=== PATIENT | female | born 1940 | race Hispanic/Latino ===

== ENCOUNTER 2018-03-09 08:43 | Inpatient (IN) | payer MEDICARE, BC ==
[~2018-03-09 08:43] MED LIST: ISOVUE-370 76%-LOCM 1 ML ONE
--- NOTE | 2018-03-09 08:58 | CT ---
CT BRAIN WITHOUT CONTRAST: Date: 03/09/18 HISTORY: Left-sided weakness. FINDINGS: There is an old lacunar infarct in the right thalamus. No evidence of acute infarct, hemorrhage, midl ine shift, or abnormal extra-axial fluid collections are seen. There is also suggestion of an old inf arction in the left frontal lobe. There are changes of chronic small vessel ischemic disease in the p eriventricular white matter. The ventricular size is appropriate and the basilar cisterns are patent. The bony calvarium is intact. Visualized paranasal sinuses and mastoid air cells are well aerated. A small old infarct is seen in the right cerebellar hemisphere, which was noted on 04/07/08. IMPRESSION: No CT evidence of acute intracranial process. Findings discussed over the telephone with ER physician, Dr. John Altamirano, at [id number] hours. CODE CR. POS: [facility]
[2018-03-09 09:05] LABS: #Basophils 0.1 thou/uL (0.0-0.2); #Eosinphils 0.1 thou/uL (0.0-0.7); #Lymphocytes 2.2 thou/uL (1.20-3.40); #Monocytes 0.4 thou/uL (0.11-0.59); #Neutrophils 4.1 thou/uL (1.40-6.50); %Basophils 0.9 % (0.0-1.0); %Eosinophils 1.1 % (0.0-10.0); %Lymphocytes 31.7 % (21.0-51.0); %Monocytes 6.5 % (0.0-10.0); %Neutrophils 59.8 % (42.0-75.0); Hemoglobin 14.1 g/dL (12.0-16.0); Mean Corpuscular HGB CONC 31.6 g/dL (32.0-36.0); Mean Corpuscular Hemoglobin 27.8 pg (27.0-31.0); Mean Platelet Volume 9.3 fL (7.4-10.4); Platelet Count 229 thou/uL (130-400); RBC Distribution Width 12.5 % (11.5-14.5); Red Blood Cell (RBC) Count 5.09 mill/uL (4.20-5.40); White Blood Cell (WBC) Count 6.8 thou/uL (4.8-10.8)
[2018-03-09 09:07] LABS: Prothrombin Time 13.1 SEC (12.0-14.7)
[2018-03-09] MEDS ORDERED: Labetalol HCl 100 MG/20 ML VIAL ONE (09:23)
[2018-03-09 09:24] LABS: ALT (SGPT) 17 U/L (8-55); AST (SGOT) 17 U/L (5-34); Albumin 3.9 g/dL (3.4-4.8); Alkaline Phosphatase 62 U/L (40-150); Anion Gap 12 mmol/L (10-20); BUN (Urea Nitrogen) 9 mg/dL (9.8-20.1); Bilirubin, Total 0.5 mg/dL (0.2-1.2); Calc. Creatinine Clearance 0 mL/min (70-130); Calcium 9.2 mg/dL (7.8-10.44); Carbon Dioxide 21 mmol/L (23-31); Chloride 106 mmol/L (98-107); Estimated GFR-MDRD 73; Globulin 3.6 g/dL (2.4-3.5); Glucose 160 mg/dL (83-110); Potassium 4.1 mmol/L (3.5-5.1); Protein, Total 7.5 g/dL (6.0-8.3); Sodium 135 mmol/L (136-145)
[2018-03-09 09:29] LABS: CKMB 1.7 ng/mL (0-6.6); Troponin I Less than 0.010 ng/mL (< 0.028)
--- NOTE | 2018-03-09 09:37 | CT ---
CTA CAROTID ARTERIES AND INTRACRANIAL CTA: HISTORY: Stroke, left-sided weakness. FINDINGS: Contrast-enhanced CTA of the carotid arteries and intracranial CTA are performed. Two-D and 3D recon structed images performed on an independent 3D work station. Some calcification is seen in the aorta. The right brachiocephalic artery is patent. The right comm on carotid artery is patent. There is some calcified atherosclerotic plaque in the distal right CCA. No evidence of significant noncalcified plaque seen. The right ICA is patent along its entire cour se. There do appear to be some mild areas of calcified plaque in the junction of the right petrous I CA and cavernous ICA; however, this does not represent significant high-grade stenosis. Some caverno us ICA calcified plaque is also seen. Good flow is seen in the supraclinoid ICA. Right BRANDEN and MCA vessels are patent. LEFT CAROTID: Some atherosclerotic plaque is seen in the distal left CCA. The left ICA contains some mild areas of calcified plaque in the left cavernous ICA. The left MCA and BRANDEN vessels are patent. A normal-appe aring anterior communicating artery is seen. Right and left vertebral arteries are patent without evidence of significant occlusion. No evidence of intracranial aneurysm is seen. IMPRESSION: Some areas of atherosclerotic plaque in the distal common carotid arteries bilaterally as well as in the cavernous internal carotid arteries. No evidence of areas of abrupt vessel cutoff seen to sugges t acute strokes. Findings discussed with Dr. Altamirano at 9:06 a.m. on 03/09/18. GAURAV CR
[2018-03-09] MEDS ORDERED: Ondansetron HCl/PF 4 MG/2 ML Vial IVP PRN (11:37)
[2018-03-09] MEDS ORDERED: Ondansetron ODT 4 MG TAB SL PRN (11:37)
[2018-03-09] MEDS ORDERED: hydrALAZINE 20 MG/ML VIAL SLOW IVP PRN (12:09)
[2018-03-09] MEDS ORDERED: HumaLOG 300 UNITS/3 ML VIAL SC PRN ×2 (12:13→12:19)
[2018-03-09] MEDS ORDERED: Dextrose 5% in Water 1,000 ML IV PRN (12:19)
[2018-03-09] MEDS ORDERED: Dextrose 50% Abboject 50 ML SYRINGE IVP PRN (12:19)
[2018-03-09] MEDS ORDERED: Clopidogrel Bisulfate 75 MG TAB PO SCH (13:45)
--- NOTE | 2018-03-09 14:28 | MRI ---
MRI BRAIN WITHOUT CONTRAST: HISTORY: Left-sided weakness. COMPARISON: None. CORRELATION: Brain CT, CT angiogram of head and neck performed on 03/09/18. TECHNIQUE: Brain MRI was performed with and without intravenous Gadolinium administration. Multisequential, mul tiplanar imaging is performed. FINDINGS: There is appropriate T1 marrow signal intensity of the calvarium. Midline brain parenchymal structur es are unremarkable. Probable remote infarct with cavitation involving the medial inferior right joe lamus. Additional punctate lacunar infarcts versus perivascular spaces in both [place] matter stru ctures is noted. There is gliotic change involving the left septal node. T2 and FLAIR white matter hyperintensities due to chronic small-vessel ischemic change. T2 and FLAIR white matter hyperintensities with restricted diffusion involving the right marcos radi josy extending to the right subinsular white matter, compatible with acute white matter infarct. Central arterial flow voids are maintained. Note is made of a partially empty sella. IMPRESSION: Acute infarct involving the right white matter structures as described above. POS: [facility]
--- NOTE | 2018-03-09 18:07 | HP ---
DATE OF ADMISSION: 03/09/2018 CHIEF COMPLAINT: Left-sided weakness, left facial droop. 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 The patient states that she was drinking her coffee in the morning when she had difficult time lifting her left arm. The family noted a left facial droop as well. They called EMS and the patient presents to the emergency departm ent. In the ED, they state that her symptoms would come and go. Her left-sided weakness slowly impr timo and then on the floor, she started noticing some left-sided weakness again. This again has impr timo somewhat, but her left facial droop has continued. She denies any chest pain, shortness of brant th, palpitations. Denies any nausea, vomiting or dizziness. Of note, she states that from her strok e 10 years ago which was a brainstem CVA, she had dizziness, nausea, and blurred vision and has not h ad any of those at this time. In the ED, she underwent a brain CT, which was negative as well as a C T angiogram of her neck and head and those showed no evidence of thrombosis. Her blood pressure in [facility] ED was elevated and this improved with IV hydralazine. She is now symptom free except for the lef t facial droop and otherwise at her baseline. I discussed with the family and they stated that she i s also behaving normally with no other changes. She was last seen in my office on 02/03/2018 and had been doing well. Her blood pressure was well controlled at that time on her current medications. H er medications were continued as well. PAST MEDICAL HISTORY: History of cerebrovascular accident brainstem 10 years ago, type 2 diabetes wi th hyperglycemia, hypertension, hyperlipidemia, history of depression. MEDICATIONS: Simvastatin 80 mg daily, Janumet one twice a day, Plavix 75 mg daily, carvedilo l 3.125 mg b.i.d., enalapril 5 mg daily. ALLERGIES: No known drug allergies. PAST SURGICAL HISTORY: Right knee surgery in 1995, D&C in 1997, bilateral cataract surgery by Dr. Scott hyatt in 2015, colonoscopy last in 2002. FAMILY HISTORY: Father with diabetes. Mother with heart disease, colon cancer and diabetes. Siblings with cancer. IMMUNIZATIONS: Up to date. She has not received her flu shot this year. SOCIAL HISTORY: She has received a Pneumovax and Prevnar within the last 5 years. REVIEW OF SYSTEMS: As per the history of present illness. GENERAL: She denies any recent fevers, chills or recent illness. HEENT: No headache, visual or hearing changes. CARDIAC: Denies chest pain, shortness of breath or palpitations. PULMONARY: Denies cough or hemoptysis. GASTROINTESTINAL: Denies nausea, vomiting, abdominal pain, melena, hematochezia. GENITOURINARY: Denies dysuria or hematuria. NEUROLOGIC: As per the history of present illness. PHYSICAL EXAMINATION: VITAL SIGNS: Temperature 98.0, pulse of 57, respirations 18, blood pressure 155/77, pulse ox is 97% on room air. GENERAL: She is awake and alert, in no acute distress. Speech is clear. She does have a left facia l droop. NECK: Supple, no bruits. HEART: Regular rate and rhythm. LUNGS: Clear. ABDOMEN: Soft. EXTREMITIES: With no edema. She moves all extremities. Lower extremity with strength 5/5, upper ex tremity with strength 5/5 with minimal deltoid weakness on the left side. NEUROLOGIC: Cranial nerves II-XII are intact. LABORATORY DATA: Sodium 135, potassium 4.1, chloride 106, CO2 of 21, BUN and creatinine 9 and 0.77, serum glucose of 160. Troponin I is negative. PT, PTT are normal. White blood cell count 6800, hem oglobin and hematocrit 14.1 and 44.8, platelets of 229. Again, CT of the brain showed no active dise ase. CT angio of the brain and neck showed no evidence of thrombosis. MRI of the brain is pending. ASSESSMENT AND PLAN: 1. This is a 78-year-old female patient with a past medical history as described above. History of past cerebrovascular accident now with evidence of a transient ischemic attack versus right cerebrova scular accident. Awaiting MRI of the brain for possible cerebrovascular accident in the middle cereb ral artery distribution. We will continue Plavix, given a dose of aspirin. We will initiate stroke team with PT, OT, and speech therapy. 2. Type 2 diabetes. We will continue Janumet and insulin sliding scale. 3. Hypertension, has improved now. We will continue her carvedilol and enalapril and hydralazine p. r.n. 4. Hyperlipidemia. We will continue high dose simvastatin. 5. Await Neurology evaluation as well.
[2018-03-09] MEDS: Carvedilol 3.125 MG TAB PO SCH (20:45)
--- NOTE | 2018-03-10 00:26 | CON ---
DATE OF CONSULTATION: 03/09/2018 CONSULTING PHYSICIAN: Hospitalist Service. IMPRESSION: 1. Lacunar stroke on the right with mild left hemiparesis. 2. Diabetes. 3. Hypertension. 4. Occasional tobacco use. 5. Plavix failure. PLAN: 1. Add aspirin. 2. Rehab screening. HISTORY OF PRESENT ILLNESS: Ms. Bhagat is a 78-year-old female, who awoke with left-sided we akness. She had had a history of distant stroke about 10 years ago. She made good recovery from thi s. She came into the hospital with continued complaints of left-sided weakness. Her MRI of the brai n revealed acute area of ischemia in the right marcos radiata as well as extensive small-vessel ische leigha changes. Her symptoms have been stable. She has not noticed any problems with speech or swallow ing. PAST MEDICAL HISTORY: As listed above. ALLERGIES: None reported. SOCIAL HISTORY: Occasional tobacco use. FAMILY HISTORY: Noncontributory. REVIEW OF SYSTEMS: No complaint of headache, nausea, vomiting, vertigo, chest pain, shortness of noe ath. PHYSICAL EXAMINATION: GENERAL: She is a well-nourished elderly lady in no distress. VITAL SIGNS: Blood pressure 186/124, pulse 65, respirations 18, temperature 99. HEENT: Pupils equal and reactive. Conjunctivae clear. Oropharynx clear. NECK: Supple. No lymphadenopathy. EXTREMITIES: No cyanosis, clubbing, or edema. NEUROLOGIC: She is alert and cooperative. Her speech is fluent and clear. Cranial nerve exam showe d some flattening of the left nasal labial fold. She had antigravity strength in the left arm with d iminished rapid alternating movements. The same was true for the left leg. She is unable to walk in dependently. Sensation was intact to light touch. Plantar responses were downgoing. No abnormal mo vements were seen. EKG shows sinus rhythm with no other significant abnormalities. SUMMARY: This is an elderly lady with hypertension and diabetes, who presents with lacunar infarctio n consistent with small-vessel disease. She has no cardiac history and has a normal EKG. Therefore, echocardiogram does not seem necessary. She will likely need rehabilitation given her gait instabi lity.
[2018-03-10 04:45] LABS: Cardiac Risk 3.2 (Less than 4.5)
[2018-03-10] MEDS: metFORMIN 500 MG TAB PO SCH (08:28)
[2018-03-10] MEDS: Aspirin 325 mg Enteric Coated Tablet PO SCH (08:28)
[2018-03-10] MEDS: Atorvastatin Calcium 40 MG TAB PO SCH (08:28)
[2018-03-10] MEDS: Alogliptin 6.25 MG TAB PO SCH (08:28)
[2018-03-10] MEDS: Carvedilol 3.125 MG TAB PO SCH ×2 (08:29→21:07)
[2018-03-10] MEDS: Clopidogrel Bisulfate 75 MG TAB PO SCH (08:29)
[2018-03-10] MEDS: HumaLOG 300 UNITS/3 ML VIAL SC PRN ×2 (11:57→17:39)
[2018-03-10] MEDS ORDERED: Labetalol HCl 100 MG/20 ML VIAL SLOW IVP PRN (12:23)
--- NOTE | 2018-03-10 13:17 | RAD ---
MODIFIED BARIUM SWALLOW: DATE: 03/10/18. HISTORY: Dysphagia following cerebral infarction. Dysphagia, unspecified. Feeding difficulties. FLUOROSCOPY: Total fluoroscopy time is 1.7 minutes with a total dose of 10.48 mGy. FINDINGS: This examination was performed in conjunction with speech pathology. Thin, semisolid, and barium-soa ked cookie were administered during the exam. The patient does demonstrate normal formation of bolus into the posterior pharynx, there is premature spill of contrast with several consistencies prior to initiation of the swallowing mechanism. There were episodes of penetration with swallowing of thin liquid barium on more than 1 occasion. No mercedes aspiration was demonstrated during the exam. The pa shira did experience coughing with swallowing of thin liquid on chin tuck and while penetration was n oted, no mercedes aspiration was seen, although trace aspiration could not be entirely excluded given co ughing episode. IMPRESSION: Penetration with thin liquid barium. No mercedes aspiration was demonstrated during this exam. However , as noted above, there was an episode of coughing with chin tuck while swallowing thin liquid. The coughing episode could potentially be related to trace aspiration which was not seen during the exam. POS: [facility]
--- NOTE | 2018-03-10 15:36 | PRG ---
DATE OF SERVICE: 03/10/2018 SUBJECTIVE: The patient is feeling some better, continues to have left-sided weakness. Nursing repo rts some problems with her gait, possible problem swallowing, awaiting the completion of a speech the rapy evaluation as well. She has been seen by Neurology who recommends rehab placement. Denies ches t pain, shortness of breath or palpitations. OBJECTIVE: VITAL SIGNS: Temperature 97.4, pulse 63, respirations 16, blood pressure 142/84. GENERAL: She is awake and alert. Speech is clear and fluent. She does have a left facial droop. HEENT: Mucosa is moist. NECK: Supple. HEART: Regular rate and rhythm. LUNGS: Clear. ABDOMEN: Soft. EXTREMITIES: With no edema. She continued to have left-sided weakness about 4/5 in upper and lower extremities. LABORATORY DATA: Reviewed. MRI did reveal a lacunar infarct on the right. ASSESSMENT: This is a 78-year-old female with a history of brainstem cerebrovascular accident in th e past, now with a right-sided cerebrovascular accident with hemiparesis and left facial droop. PLAN: 1. We will continue coagulation with Plavix and full dose aspirin. Continue to wait for PT, OT, Spe ech Therapy evaluation and consult rehabilitation for placement. I appreciate Dr. Bejarano evaluation as well. 2. Type 2 diabetes. We will continue oral meds and insulin sliding scale. 3. Hypertension. We will continue her oral meds and p.r.n. IV antihypertensives. 4. Hyperlipidemia, already on a statin and will continue that at this time. DISPOSITION: Awaiting placement.
[2018-03-11 04:23] VITALS: TEMP 98.4
[2018-03-11] MEDS: Alogliptin 6.25 MG TAB PO SCH (08:40)
[2018-03-11] MEDS: metFORMIN 500 MG TAB PO SCH (08:40)
[2018-03-11] MEDS: Aspirin 325 mg Enteric Coated Tablet PO SCH (08:40)
[2018-03-11] MEDS: Carvedilol 3.125 MG TAB PO SCH (08:40)
[2018-03-11] MEDS: Atorvastatin Calcium 40 MG TAB PO SCH (08:40)
[2018-03-11] MEDS: Clopidogrel Bisulfate 75 MG TAB PO SCH (08:41)
[2018-03-11] MEDS: HumaLOG 300 UNITS/3 ML VIAL SC PRN (11:12)
[2018-03-11 11:48] VITALS: BP 153/76
--- NOTE | 2018-03-11 14:11 | DIS ---
DATE OF ADMISSION: 03/09/2018 DATE OF DISCHARGE: 03/11/2018 PRIMARY CARE PHYSICIAN: Dr. Lito Gamble. CHIEF COMPLAINT: Weakness, facial droop, following stroke-like symptoms. HISTORY OF PRESENT ILLNESS: The patient presented to the emergency department on 03/09/2018. CT of brain showed an old right cerebellar hemisphere infarct, no acute findings following up MRI. Acute i nfarct to white matter near brain stem. Neurology was consulted with Dr. Bejarano. Agreed with manag ement including the patient on aspirin and Plavix. Continue on the patient's Lipitor and carvedilol from home. The patient's glucose was controlled with metformin and sliding scale insulin. Regarding her diabetes given patient's hemiparesis to left side with inability to move left arm and transfer s afely, patient was recommended for inpatient rehabilitation and was successfully transferred today. DIAGNOSES: CVA, dysphagia, hemiparesis, diabetes type 2, hypertension. PERTINENT STUDIES: MRI of brain and CT including CTA [place] as above. Speech therapy, mod ified barium swallow showed mild aspiration with thin liquids. The patient's diet on discharge to in patient rehabilitation was modified mechanical soft with nectar thickened liquids. DISCHARGE CONDITION: Stable. HISTORY OF PRESENT ILLNESS AND HOSPITAL COURSE: The patient remains without use of left arm, able to move left leg approximately 4/5 strength at time of discharge. DISCHARGE MEDICATIONS: Included Coreg 3.125 mg b.i.d, 75 mg Plavix, 5 mg enalapril and 80 mg simvast atin. The patient may resume home Januvia and metformin. The patient to follow up with Dr. Lito phillips within 1 week of discharge from inpatient rehabilitation. She will continue physical therapy, speech therapy, and occupational therapy evaluations. Patient has reported visual field defect and w angelica would recommend Ophthalmology referral on an outpatient basis.
== END 2018-03-11 15:27 | DRG 65 ==
LOC: ERS 08:43 → 2SE 11:11 → OBSVTOIN 12:11 → 2SE 18:12
PROVIDERS: ADMIT Family Medicine; ATTEND Family Medicine
DX: I63.9 Cerebral infarction, unspecified (principal); G81.94 Hemiplegia, unspecified affecting left nondominant side; R29.810 Facial weakness; R13.10 Dysphagia, unspecified; E11.9 Type 2 diabetes mellitus without complications; I10 Essential (primary) hypertension; F17.210 Nicotine dependence, cigarettes, uncomplicated; Z86.73 Personal history of transient ischemic attack (TIA), and cerebral infarction without residual deficits; R26.81 Unsteadiness on feet; Z91.81 History of falling; E78.5 Hyperlipidemia, unspecified; F32.9 Major depressive disorder, single episode, unspecified
CPT/HCPCS: 36415; 36416; 70450; 70496; 70498; 70551; 74230; 80053; 80061; 82553; 84484; 85025; 85610; 85730; 93005; 96374; A4216; G8978-GP-CM; G8979-GP-CK; G8987-GO-CK; G8988-GO-CI; G8996-GN-CJ; G8996-GN-CK; G8997-GN-CH; G8997-GN-CI

== ENCOUNTER 2018-04-04 15:16 | Inpatient (IN) | payer MEDICARE, BC ==
[~2018-04-04 15:16] MED LIST changes: -ISOVUE-370 76%-LOCM 1 ML ONE; +Iopamidol 370 76% 100 ML VIAL ONE
[2018-04-04 15:59] LABS: #Eosinphils 0.1 thou/uL (0.0-0.7); #Lymphocytes 1.5 thou/uL (1.20-3.40); #Monocytes 0.7 thou/uL (0.11-0.59); #Neutrophils 7.3 thou/uL (1.40-6.50); %Basophils 0.5 % (0.0-1.0); %Eosinophils 0.8 % (0.0-10.0); %Lymphocytes 15.9 % (21.0-51.0); %Monocytes 6.9 % (0.0-10.0); %Neutrophils 75.9 % (42.0-75.0); Hemoglobin 12.6 g/dL (12.0-16.0); Mean Corpuscular Hemoglobin 26.6 pg (27.0-31.0); Mean Corpuscular Volume 85.9 fL (78.0-98.0); Platelet Count 200 thou/uL (130-400); Red Blood Cell (RBC) Count 4.75 mill/uL (4.20-5.40); White Blood Cell (WBC) Count 9.6 thou/uL (4.8-10.8)
[2018-04-04 16:14] LABS: ALT (SGPT) 22 U/L (8-55); AST (SGOT) 16 U/L (5-34); Albumin 3.6 g/dL (3.4-4.8); Alkaline Phosphatase 56 U/L (40-150); Anion Gap 13 mmol/L (10-20); BUN (Urea Nitrogen) 10 mg/dL (9.8-20.1); Bilirubin, Total 0.2 mg/dL (0.2-1.2); Calc. Creatinine Clearance 0 mL/min (70-130); Carbon Dioxide 24 mmol/L (23-31); Chloride 108 mmol/L (98-107); Estimated GFR-MDRD 76; Globulin 3.2 g/dL (2.4-3.5); Glucose 158 mg/dL (83-110); Lipase 29 U/L (8-78); Potassium 3.8 mmol/L (3.5-5.1); Protein, Total 6.8 g/dL (6.0-8.3); Sodium 141 mmol/L (136-145)
[2018-04-04] MEDS ORDERED: Morphine 4 MG/ML VIAL ONE (16:14)
[2018-04-04] MEDS ORDERED: HYDROcodone/Acetaminophen 5/325 mg Tablet ONE (17:34)
[2018-04-04 17:47] LABS: CKMB 1.1 ng/mL (0-6.6); Troponin I Less than 0.010 ng/mL (< 0.028)
--- NOTE | 2018-04-04 18:26 | CT ---
CT CHEST WITH IV CONTRAST CT ABDOMEN WITH IV CONTRAST CT PELVIS WITH IV CONTRAST CORONAL AND SAGITTAL REFORMATIONS OF THE THORACOLUMBAR SPINE 04/04/18 HISTORY: Left sided rib pain, back pain. Fall. FINDINGS: No mediastinal hematoma or interval flap in the aorta is seen to suggest transection. There are vascu lar calcifications without evidence of aneurysmal dilatation of the thoracoabdominal aorta. No pleura l or pericardial effusions are seen. There are dependent changes in the lung bases. No pneumothoraces or pulmonary contusions are seen. There are fractures of the left 8th, 9th, 10th, and 11th ribs. The liver, spleen, pancreas, adrenal glands and kidneys are intact. Multiple cysts are seen in the ki dneys. A tiny cyst is seen in the liver. The gallbladder and urinary bladder appear intact. No free a ir or free fluid is seen in the abdomen or pelvis. The uterus is present. There are degenerative valera ges in the thoracolumbar spine without fracture or dislocation. There is minimal anterolisthesis of L 4 over L5. IMPRESSION: 1. Left rib fractures (8 through 11). No evidence of pneumothorax. 2. No evidence of solid organ injury. POS: [facility]
[2018-04-04 19:30] LABS: Bilirubin Negative (Negative); Blood, Urine Negative (Negative); Clarity Clear (Clear); Glucose, Urine (Dipstick) Negative (Negative); Leukocyte Negative (Negative); Nitrite Negative (Negative); Protein, Urine (Dipstick) Negative (Neg-Trace); Specific Gravity, Urine 1.015 (1.005-1.030); Urobilinogen 0.2 mg/dL (0.2-1.0); pH, Urine 6.5 (5.0-9.0)
[2018-04-04 21:01] VITALS: BMI 27.2
[2018-04-04] MEDS ORDERED: Ondansetron HCl/PF 4 MG/2 ML Vial IVP PRN ×2 (21:01→21:24)
[2018-04-04] MEDS ORDERED: Ondansetron ODT 4 MG TAB SL PRN (21:01)
[2018-04-04] MEDS ORDERED: Acetaminophen 325 MG TAB PO PRN (21:01)
[2018-04-04] MEDS ORDERED: Morphine 4 MG/ML VIAL IV PRN (21:02)
[2018-04-04] MEDS ORDERED: Ondansetron ODT 4 MG TAB PO PRN (21:24)
[2018-04-04] MEDS ORDERED: Rib Fracture Protocol PO SCH (21:24)
[2018-04-04] MEDS ORDERED: Dextrose 50% Abboject 50 ML SYRINGE SLOW IVP PRN (21:24)
[2018-04-04] MEDS ORDERED: hydrALAZINE 20 MG/ML VIAL SLOW IVP PRN (21:24)
[2018-04-04] MEDS ORDERED: Dextrose 5% in Water 1,000 ML IV PRN (21:24)
[2018-04-04] MEDS ORDERED: Acetaminophen 1,000 MG in Premix Bag 1 BAG IVPB SCH (21:30)
[2018-04-04] MEDS ORDERED: Ketorolac Tromethamine 30 MG/ML VIAL IVP SCH (21:30)
[2018-04-04] MEDS ORDERED: Cyclobenzaprine 10 MG TAB PO PRN (21:33)
[2018-04-04] MEDS ORDERED: Gabapentin 100 MG CAP PO SCH (21:45)
[2018-04-04] MEDS: traMADol HCl 50 MG TAB PO SCH (23:57)
--- NOTE | 2018-04-05 00:29 | HP ---
DATE OF ADMISSION: 04/04/2018 REQUESTING PHYSICIAN: Dr. Chin. ATTENDING SURGEON: Dr. Osborn. HISTORY OF PRESENT ILLNESS: Patient is a 78-year-old woman who was at her doctor's office t lora when she was attempting to get up on a scale when she missed her step primarily due to her recen t stroke that has left her with left-sided weakness. She ended up falling, hitting a table on her le ft side of her chest. She had immediate pain and discomfort. She was taken to the Emergency Departm ent in [facility] where she underwent evaluation and examination and was noted to have fra ctures to ribs 8, 9, 10 and 11 on the left side at which time she was transferred to our facility for admission for pain control. The patient denied any loss of consciousness, hitting her head or neck. ALLERGIES: None. CURRENT MEDICATIONS: , aspirin, carvedilol, clopidogrel, docusate, enalapril, Humalog, simvasta tin, Janumet. PAST MEDICAL HISTORY: CVA, diabetes, hypertension. PAST SURGICAL HISTORY: Right knee surgery scope. SOCIAL HISTORY: Patient denies drug, tobacco or alcohol use. She lives at home with her family. Louis dominguez has just recently been discharged from inpatient rehabilitation after her stroke. REVIEW OF SYSTEMS: A 10-point review of systems is negative, unless otherwise stated. PHYSICAL EXAMINATION: VITAL SIGNS: BP 165/76, heart rate 61, respirations 18, oxygen saturation 96% on room air, temperatu re is 97.5. GENERAL: The patient is resting comfortably in the bed on the telemetry floor. She is awake, alert, and oriented x3. [place] coma scale is 15. HEENT: Head is normocephalic. Eyes are PERRLA bilaterally. Ears are atraumatic without discharge. Nose is atraumatic without discharge. Oropharynx is clear. NECK: Nontender. Trachea is midline. No JVD. CHEST: Clear to auscultation with moderate inspiratory and expiratory effort. Patient has difficult y taking a deep inspiration due to pain at this time. HEART: Regular rate and rhythm. ABDOMEN: Soft, flat, nontender with active bowel sounds. Pelvis is stable. Left chest wall is tend er to palpation consistent with her fractures. EXTREMITIES: Neurovascularly intact x4. Capillary refill is less than 3 seconds. Pulses are 2+. BACK: Has tenderness to palpation to the left posterior aspect again consistent with her fractures. There is no tenderness to midline. LABORATORY DATA: White blood cell count 9.6, hemoglobin 12.6, hematocrit 40.8, platelets 200. Sodiu m 141, potassium 3.8, chloride 108, CO2 of 24, BUN 10, creatinine 0.74, glucose 158. LFTs are unrema rkable. CK-MB 1.1, troponin less than 0.10. Urinalysis is unremarkable. RADIOGRAPHIC FINDINGS: CT of the chest, abdomen and pelvis with IV contrast shows left rib fractures 8 through 11 with no evidence of pneumothorax, no evidence of solid organ injury. ASSESSMENT AND PLAN: 1. Status post ground level fall. 2. Left ribs 8 through 11 fracture. 3. Acute pain secondary to above. 4. History of hypertension. 5. History of clopidogrel usage. PLAN: Plan will be to maintain the patient on the telemetry floor. It is unclear as to why she was directly admitted to the telemetry floor. She had an unremarkable EKG showed no syncopal symptoms an d her cardiac enzymes are negative. If the patient requires continued days in the hospital tomorrow, she will most likely be moved to the surgical floor unless there are changes. The evaluation, exami nation, laboratory and radiographic findings will be discussed with Dr. Osborn after this dictation. He was aware prior to her transfer of her need for admission.
[2018-04-05 06:05] LABS: #Eosinphils 0.1 thou/uL (0.0-0.7); #Lymphocytes 1.9 thou/uL (1.20-3.40); #Monocytes 0.7 thou/uL (0.11-0.59); #Neutrophils 5.3 thou/uL (1.40-6.50); %Basophils 0.6 % (0.0-1.0); %Eosinophils 0.9 % (0.0-10.0); %Lymphocytes 23.7 % (21.0-51.0); %Monocytes 8.6 % (0.0-10.0); %Neutrophils 66.2 % (42.0-75.0); Hemoglobin 11.9 g/dL (12.0-16.0); Mean Corpuscular HGB CONC 31.2 g/dL (32.0-36.0); Mean Corpuscular Hemoglobin 27.9 pg (27.0-31.0); Mean Corpuscular Volume 89.2 fL (78.0-98.0); Mean Platelet Volume 9.5 fL (7.4-10.4); Platelet Count 221 thou/uL (130-400); RBC Distribution Width 12.9 % (11.5-14.5); Red Blood Cell (RBC) Count 4.29 mill/uL (4.20-5.40); White Blood Cell (WBC) Count 8.1 thou/uL (4.8-10.8)
[2018-04-05] MEDS: traMADol HCl 50 MG TAB PO SCH ×4 (06:12→23:58)
[2018-04-05] MEDS: Ibuprofen 600 MG TAB PO SCH ×3 (06:14→22:25)
[2018-04-05] MEDS: Acetaminophen 500 MG TAB PO SCH ×4 (06:14→23:55)
[2018-04-05 06:18] LABS: Anion Gap 10 mmol/L (10-20); BUN (Urea Nitrogen) 10 mg/dL (9.8-20.1); Calc. Creatinine Clearance 90 mL/min (70-130); Calcium 8.4 mg/dL (7.8-10.44); Carbon Dioxide 24 mmol/L (23-31); Chloride 107 mmol/L (98-107); Estimated GFR-MDRD Greater than 90; Glucose 97 mg/dL (83-110); Magnesium 1.5 mg/dL (1.6-2.6); Phosphorus 3.9 mg/dL (2.3-4.7); Potassium 3.7 mmol/L (3.5-5.1); Sodium 137 mmol/L (136-145)
[2018-04-05] MEDS: Famotidine 20 MG TAB PO SCH ×2 (08:17→20:37)
[2018-04-05] MEDS: Gabapentin 100 MG CAP PO SCH ×3 (08:17→20:37)
--- NOTE | 2018-04-05 08:22 | HP ---
CHIEF COMPLAINT: Left rib pain. HISTORY OF PRESENT ILLNESS: This is a 78-year-old female patient with a history of a remote CVA in 2 013 and then a recent cerebellar CVA about 1 month ago, presented to the emergency department after a fall at an outpatient office. She was presenting for followup when she was apparently stepping on t he scale and missed a step and fell over to her side. She hit her side on a small table and had sudd en onset of left-sided chest wall pain. She was evaluated in the office and was sent to the emergenc y department for further evaluation where she was found to have fractures of ribs 8, 9, 10, 11 on the left. She was admitted last night for further evaluation and observation due to the fall and rib fr actures. She denied any loss of consciousness, denied hitting her head or neck. This morning she st ates that her pain is better controlled. She is able to breathe more comfortably. She is moving and still has pain on her left side. She has not been ambulating since presenting to the floor last nig ht. She continues to deny headache or neck pain. Denies confusion or dizziness. PAST MEDICAL HISTORY: A recent CVA cerebellum, brainstem CVA 10 years ago, type 2 diabetes, hyperten mickey, hyperlipidemia, history of anxiety and depression. MEDICATIONS: Simvastatin, Janumet, Plavix, carvedilol. ALLERGIES: No known drug allergies. REVIEW OF SYSTEMS: As per history of present illness. She was recently discharged from inpatient re hab. GENERAL: She denies recent illness, fevers or chills. HEENT: Denies headache, visual or hearing changes. CARDIOVASCULAR: Denies chest pain, shortness of breath or palpitations. PULMONARY: Denies cough or hemoptysis. GASTROINTESTINAL: Denies nausea, vomiting, abdominal pain. GENITOURINARY: Denies dysuria or hematuria. NEUROLOGIC: Left-sided weakness residual from her stroke 10 years ago. OBJECTIVE: VITAL SIGNS: Temperature 98.4, pulse of 58-59, respirations 16, blood pressure 126/66, pulse ox is 9 8% on room air. GENERAL: She is awake and alert, in no acute distress. Speech is clear and fluent. NECK: Supple, full range of motion. HEART: Regular rate and rhythm. LUNGS: Clear bilaterally. She does have left posterolateral chest wall pain and tenderness. ABDOMEN: Soft. EXTREMITIES: No edema. NEUROLOGIC: Left-sided weakness in upper and lower extremities. LABORATORY DATA: Reviewed and appears to be stable. Accu-Cheks of 92, 97 and 158. Urinalysis was n egative. CT chest, abdomen and pelvis in the ED revealed left rib fractures 8 through 11, no pneumothorax, no solid organ injury. ASSESSMENT AND PLAN: 1. This is a 78-year-old female patient with a history of a cerebrovascular accident, type 2 diabete s, hypertension, hyperlipidemia, admitted for left-sided rib fractures status post fall. Plan as per trauma team. A chest x-ray this morning is pending. 2. Type 2 diabetes. We will continue oral meds and start insulin sliding scale if needed. 3. Hypertension is stable. 4. Cerebrovascular accident. We will continue antiplatelet therapy. DISPOSITION: Hopefully home soon.
--- NOTE | 2018-04-05 09:09 | RAD ---
PORTABLE CHEST: History: Rib fractures. Comparison: Chest films from 2008. Correlation made yesterday's CT which described left rib fractures , 8-11. FINDINGS/IMPRESSION: The lungs are well aerated and clear. No pneumothorax or significant effusion. No evidence of infiltr ate or contusion. Heart and mediastinum are unremarkable. The rib fractures are not well delineated o n this portable chest exam. POS: [facility]
[2018-04-05] MEDS ORDERED: Enoxaparin Sodium 30 MG/0.3 ML SYRINGE SC SCH ×2 (09:41→10:15)
[2018-04-05] MEDS ORDERED: Scopolamine 1.5 mg/72 hour Patch TD SCH (13:30)
[2018-04-05] MEDS ORDERED: Magnesium 2 GM/50 ML 2 GM in Premix Bag 1 BAG IVPB SCH (13:45)
[2018-04-05] MEDS ORDERED: Potassium Chloride 20 MEQ in Premix Bag 1 BAG IVPB SCH (13:45)
--- NOTE | 2018-04-05 13:49 | PRG ---
DATE OF SERVICE: 04/05/2018 HISTORY: This is a 78-year-old woman, who was admitted last night following a fall at her [facility] physician's office. The patient apparently suffered no loss of consciousness or head tra jessica. Her workup here revealed multiple left-sided rib fractures involving ribs 8 through 11. [facility], the patient has had episodes of nonbilious emesis and nausea. This morning, she had just recorded 1 episode of nonbilious emesis, which is usually exacerbated with movement. OBJECTIVE: VITAL SIGNS: This morning included blood pressure 126/66, pulse 58, respiratory rate is 16, temperat ure 98.4 degrees Fahrenheit, oxygen saturation 97% on room air. HEENT EXAMINATION: Pupils equal, round, and reactive to light and accommodation. HEART: Reveals regular rate and rhythm. No murmurs or gallops auscultated. LUNGS: Clear to auscultation bilaterally. Her breathing is regular and unlabored. She has poor ins piratory effort and a poor cough effort, which is limited to chest wall pain. ABDOMEN: Soft, nontender, nondistended. EXTREMITIES: With 2+ radial and pedal pulses bilaterally. No ankle edema is present. NEUROLOGICAL EXAMINATION: Reveals no focal deficits present. LABORATORY FINDINGS: Today includes a CBC with 8100 white blood cells, hemoglobin and hematocrit are stable at 11.9 and 38.2 respectively. Platelet count is 221,000. Metabolic profile: Sodium 137, p otassium is 3.7, chloride is 107, bicarbonate is 24, BUN is 10, creatinine 0.63, glucose 97, magnesiu m 1.5, phosphorus is 3.9. I personally reviewed the chest x-ray obtained this morning, which reveals no pneumothorax or pleural effusion to suggest hemothorax. IMPRESSION: 1. Post-injury day #1, status post fall. 2. Multiple left-sided rib fractures involving ribs 8 through 11. 3. Acute traumatic pain syndrome. PLAN: 1. Optimize pain control. 2. Increase activity per physical and occupational therapies. 3. Correct abnormal electrolytes. 4. We will ask PM&R to evaluate the patient for possible inpatient rehabilitation post-discharge yahir ernestina discharge to home. Above findings and plan discussed with the patient and her daughter at bedside. They both indicated understanding of the information given. I answered her questions.
[2018-04-05] MEDS ORDERED: Magnesium Sulfate 2 GM in Sodium Chloride 0.9% 100 ML IVPB SCH (14:00)
[2018-04-06 05:31] LABS: Anion Gap 11 mmol/L (10-20); BUN (Urea Nitrogen) 13 mg/dL (9.8-20.1); Calc. Creatinine Clearance 72 mL/min (70-130); Calcium 8.5 mg/dL (7.8-10.44); Carbon Dioxide 24 mmol/L (23-31); Chloride 105 mmol/L (98-107); Estimated GFR-MDRD 71; Glucose 100 mg/dL (83-110); Phosphorus 4.4 mg/dL (2.3-4.7); Potassium 3.9 mmol/L (3.5-5.1); Sodium 136 mmol/L (136-145)
[2018-04-06] MEDS: Acetaminophen 500 MG TAB PO SCH ×2 (06:19→14:27)
[2018-04-06] MEDS: Ibuprofen 600 MG TAB PO SCH ×2 (06:19→14:19)
[2018-04-06] MEDS: traMADol HCl 50 MG TAB PO SCH ×2 (06:20→14:27)
[2018-04-06] MEDS ORDERED: Enoxaparin Sodium 30 MG/0.3 ML SYRINGE SC SCH (09:00)
[2018-04-06] MEDS: Famotidine 20 MG TAB PO SCH (09:27)
[2018-04-06 09:31] VITALS: BP 116/59; TEMP 96.3
[2018-04-06] MEDS: Gabapentin 100 MG CAP PO SCH ×2 (09:33→15:00)
--- NOTE | 2018-04-06 21:43 | DIS-2 ---
DATE OF ADMISSION: 04/04/2018 DATE OF DISCHARGE: 04/06/2018. RESIDENT: Nuvia Rios MD ADMITTING ATTENDING: Dr. Willem Osborn DISCHARGE ATTENDING: Dr. Willem Osborn CONSULTS: None. PROCEDURES: 1. Chest, abdomen, and pelvis CT on 04/04/2018, which shows left-sided rib fractures of ribs 8 throu gh 11 with no evidence of pneumothorax or solid organ injury. 2. Chest x-ray on 04/05/2018, which shows that the lungs are well aerated and clear. No pneumothora x or significant effusion. The rib fractures are not well delineated on this portable chest exam. PRIMARY DIAGNOSES: 1. Left-sided rib fractures of ribs 8 through 11. 2. Transient hypoxia secondary to decreased respiratory effort from left-sided rib fractures. SECONDARY DIAGNOSES: 1. History of recent cerebrovascular accident of cerebellum. 2. 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 3. Type 2 diabetes. 4. Hypertension. 5. Hyperlipidemia. 6. Anxiety. 7. Depression. DISCHARGE MEDICATIONS: 1. Janumet mg 1 tablet p.o. daily. 2. Enalapril maleate 2.5 mg daily. 3. Clopidogrel bisulfate 1 tab p.o. daily 75 mg. 4. Carvedilol 3.125 mg 1 tab p.o. b.i.d. 5. Aspirin 325 mg p.o. daily. 6. Atorvastatin 20 mg p.o. daily. 7. Citalopram 10 mg p.o. at bedtime. 8. Acetaminophen 1000 mg p.o. every 6 hours. 9. Gabapentin 100 mg p.o. t.i.d. for 2 weeks. 10. Ibuprofen 600 mg p.o. every 8 hours for pain. 11. Ondansetron 4 mg p.o. every 6 hours p.r.n. 12. Tramadol 100 mg p.o. every 6 hours for pain. DISCONTINUED MEDICATIONS: None. HOSPITAL COURSE: The patient is a 78-year-old lady with a past medical history significant for a remote CVA in 2012 and a recent cerebellar CVA approximately 1 month ago, who presented to the emergency department after a fall in the outpatient office. The patient was presenting for a followu p and while stepping up on the scale missed a step and fell hitting her left side on a small table. The patient had sudden onset of left-sided chest wall pain, and was evaluated to the office and immed iately sent to the emergency department for further evaluation. Upon arrival at the Emergency Depart ment, the patient's vitals were noted to be within normal limits with the exception of an extremely h igh blood pressure at 190/93. The patient reported her pain to be 10/10 in severity in her left side . She was given 4 mg of IV morphine dose of p.o. [place] in the emergency department for her tatiana n. Routine labs obtained on admission were within normal limits with the exception of hypomagnesemia with her magnesium level was 1.5. The patient also had a chest, abdomen and pelvis CT that was sign ificant for left-sided rib fractures of ribs 8 through 11. The trauma team was therefore consulted t o come and evaluate the patient in the Emergency Department, and upon evaluation, the trauma team adm itted the patient to the Trauma Service for pain control and observation overnight. The patient was started on scheduled Tylenol 1000 mg every 6 hours as well as gabapentin 100 mg p.o. t.i.d., ibuprofen 600 mg p.o. q.8 hours, and was also initially given tramadol 50 mg every 6 hours sc heduled with another 50 mg p.r.n. for breakthrough pain. However, on exam, the following morning, the patient stated her pain was about 5/10 in severity, yet she was unable to take a deep breath or cough secondary to pain. She was therefore escalated to a 10 0 mg scheduled dose of tramadol with no p.r.n. dose between. She was also notably nauseous, so a sco polamine patch was ordered in addition to her p.r.n. doses of Zofran. It was decided to observe the patient for 1 additional day in order to ensure she had adequate pain control before discharging her home. Thus, the morning of discharge, the patient denied being in any pain on exam and was able to d emonstrate adequate usage of incentive spirometry without any pain. She was also tolerating p.o. and voiding and stooling normally. We therefore decided that the patient had adequate pain control and was cleared to be discharged home with close follow up with her primary care physician as well as the trauma team. Regarding the patient's transient hypoxia, this was likely secondary to the patient being at rest and /or taking inadequate deep breath secondary to pain as she required oxygen supplementation with nasal cannula on and off throughout her hospital stay. However, by the time of discharge, the patient was noted to be satting in the mid to upper 90s on room air without any signs of increased work of breat mychal. DISCHARGE INSTRUCTIONS: 1. Location: Home. 2. Diet: Heart healthy diet, diabetic diet. 3. Activity: As tolerated. 4. Followup: The patient was instructed to follow up with her primary care provider, Dr. Bari rodríguez within 1 week of discharge. She was also instructed to follow up with the trauma team within 2 weeks of discharge and to obtain a repeat chest x-ray prior to making this appointment.
== END 2018-04-06 15:23 | disposition home health service (06) | DRG 185 ==
LOC: SCSER 15:16 → 2NO 20:44
PROVIDERS: ADMIT Surgery; ATTEND Surgery
DX: S22.42XA Multiple fractures of ribs, left side, initial encounter for closed fracture (principal); Z86.73 Personal history of transient ischemic attack (TIA), and cerebral infarction without residual deficits; E11.9 Type 2 diabetes mellitus without complications; I10 Essential (primary) hypertension; E78.5 Hyperlipidemia, unspecified; F32.9 Major depressive disorder, single episode, unspecified; F41.9 Anxiety disorder, unspecified; Z79.84 Long term (current) use of oral hypoglycemic drugs; Z79.02 Long term (current) use of antithrombotics/antiplatelets; W01.190A Fall on same level from slipping, tripping and stumbling with subsequent striking against furniture, initial encounter; Y93.89 Activity, other specified; Y92.531 Health care provider office as the place of occurrence of the external cause; G89.11 Acute pain due to trauma; R09.02 Hypoxemia; Z79.82 Long term (current) use of aspirin
CPT/HCPCS: 36415; 36416; 71045; 71260; 74177; 80048; 80053; 81003; 82553; 83690; 83735; 84100; 84484; 85025; 93005; 94640; 96361; 96374; G8978-GP-CK; G8979-GP-CJ; G8987-GO-CL; G8988-GO-CJ; G8996-GN-CJ; G8997-GN-CI; J0131; J1650; J1885; J2270; J2405; J3475; J3480; J7050; J7620

== ENCOUNTER 2018-04-19 11:34 | Outpatient (CLI) | payer MEDICARE, BC ==
--- NOTE | 2018-04-19 12:57 | RAD ---
TWO VIEWS CHEST: Date: 04-19-18 Provided Clinical History: Rib fractures. Comparison: 04-05-18 FINDINGS: Cardiac and mediastinal silhouette is unchanged in appearance. Fractures involving the lateral aspect s of multiple mid to lower left ribs are redemonstrated. There is mild left pleural effusion. There i s no evidence for pneumothorax. The lungs appear clear. IMPRESSION: Multiple left sided rib fractures are redemonstrated. Mild left pleural fluid is seen. POS: [facility]
== END 2018-04-19 11:35 | disposition home or self-care (01) ==
LOC: RAD 11:34
PROVIDERS: ATTEND Physician Assistant
DX: S22.42XD Multiple fractures of ribs, left side, subsequent encounter for fracture with routine healing (principal); J94.8 Other specified pleural conditions
CPT/HCPCS: 71046

== ENCOUNTER 2018-05-25 16:38 | Emergency (ER) | payer MEDICARE, BC ==
--- NOTE | 2018-05-25 18:50 | RAD ---
LEFT SHOULDER TWO VIEWS: 05/25/18 HISTORY: Fall. There is a fracture which appears to extend through the humeral head and greater tuberosity region. F racture is minimally displaced. Bones are demineralized. IMPRESSION: Left humeral head and greater tuberosity fracture. POS: [facility]
[2018-05-25] MEDS ORDERED: HYDROcodone/Acetaminophen 5/325 mg Tablet ONE (18:52)
== END 2018-05-25 19:13 | disposition home or self-care (01) ==
LOC: ERS 16:38
DX: S42.252A Displaced fracture of greater tuberosity of left humerus, initial encounter for closed fracture (principal); E11.9 Type 2 diabetes mellitus without complications; I10 Essential (primary) hypertension; Z79.82 Long term (current) use of aspirin; Z86.73 Personal history of transient ischemic attack (TIA), and cerebral infarction without residual deficits; Z79.84 Long term (current) use of oral hypoglycemic drugs; Z79.899 Other long term (current) drug therapy; W19.XXXA Unspecified fall, initial encounter
CPT/HCPCS: 99283

== ENCOUNTER 2022-08-27 13:45 | Emergency (ER) | payer MEDICARE, BC ==
[2022-08-27 14:16] LABS: #Basophils 0.1 thou/uL (0.0-0.2); #Eosinphils 0.1 thou/uL (0.0-0.7); #Lymphocytes 1.9 thou/uL (1.20-3.40); #Monocytes 0.4 thou/uL (0.11-0.59); %Basophils 0.8 % (0.0-1.0); %Eosinophils 2.3 % (0.0-10.0); %Lymphocytes 29.4 % (21.0-51.0); %Monocytes 5.7 % (0.0-10.0); %Neutrophils 61.8 % (42.0-75.0); Hemoglobin 13.5 g/dL (12.0-16.0); Mean Corpuscular HGB CONC 31.8 g/dL (32.0-36.0); Mean Corpuscular Hemoglobin 29.1 pg (27.0-31.0); Mean Corpuscular Volume 91.3 fl (78.0-98.0); Mean Platelet Volume 9.2 fL (7.4-10.4); Platelet Count 257 10x3/uL (130-400); RBC Distribution Width 12.6 % (11.5-14.5); Red Blood Cell (RBC) Count 4.65 mill/uL (4.20-5.40); White Blood Cell (WBC) Count 6.5 10x3/uL (4.8-10.8)
[2022-08-27 14:34] LABS: ALT (SGPT) 11 U/L (8-55); AST (SGOT) 14 U/L (5-34); Albumin 3.7 g/dL (3.4-4.8); Alkaline Phosphatase 59 U/L (40-110); Anion Gap 14 mmol/L (10-20); BUN (Urea Nitrogen) 12 mg/dL (9.8-20.1); Bilirubin, Total 0.3 mg/dL (0.2-1.2); Calc. Creatinine Clearance 0 mL/min (70-130); Carbon Dioxide 22 mmol/L (23-31); Chloride 104 mmol/L (98-107); Estimated GFR 79; Globulin 3.3 g/dL (2.4-3.5); Glucose 190 mg/dL (83-110); Sodium 136 mmol/L (136-145)
== END 2022-08-27 18:49 | disposition home or self-care (01) ==
LOC: ERS 13:45
DX: R42 Dizziness and giddiness (principal); I10 Essential (primary) hypertension; E11.9 Type 2 diabetes mellitus without complications; E78.5 Hyperlipidemia, unspecified; F17.210 Nicotine dependence, cigarettes, uncomplicated; Z79.84 Long term (current) use of oral hypoglycemic drugs; Z79.899 Other long term (current) drug therapy; Z79.82 Long term (current) use of aspirin
CPT/HCPCS: 36415; 80053; 84484; 85025; 93005

== ENCOUNTER 2024-04-05 08:49 | Outpatient (CLI) | payer MEDICARE | END 2024-04-05 08:50 | disposition home or self-care (01) | LOC: BICMAMMO 08:49 | PROVIDERS: ATTEND Family Medicine | DX: Z78.0 Asymptomatic menopausal state (principal); M85.852 Other specified disorders of bone density and structure, left thigh | CPT/HCPCS: 77080 ==

== ENCOUNTER 2024-06-19 05:43 | Inpatient (IN) | payer MEDICARE ==
[2024-06-19 07:08] LABS: #Basophils 0.03 10x3/uL (0.0-0.2); %Basophils 0.3 % (0.0-1.0); %Eosinophils 1.5 % (0.0-10.0); %Lymphocytes 18.9 % (21.0-51.0); %Monocytes 5.4 % (0.0-10.0); %Neutrophils 73.5 % (42.0-75.0); Hematocrit 41.5 % (36.0-47.0); Hemoglobin 13.2 g/dL (12.0-16.0); Mean Corpuscular HGB CONC 31.8 g/dL (32.0-36.0); Mean Corpuscular Hemoglobin 28.1 pg (27.0-31.0); Mean Corpuscular Volume 88.5 fL (78.0-98.0); Mean Platelet Volume 11.7 fL (7.4-10.4); Platelet Count 250 10x3/uL (130-400); Red Blood Cell (RBC) Count 4.69 mill/uL (4.20-5.40)
[2024-06-19 07:30] LABS: ALT (SGPT) 11 U/L (8-55); AST (SGOT) 14 U/L (5-34); Albumin 3.2 g/dL (3.4-4.8); Alkaline Phosphatase 57 U/L (40-110); Anion Gap 12 mmol/L (10-20); BUN (Urea Nitrogen) 15 mg/dL (9.8-20.1); Bilirubin, Total 0.3 mg/dL (0.2-1.2); Calc. Creatinine Clearance 0 mL/min (70-130); Calcium 8.6 mg/dL (7.8-10.44); Carbon Dioxide 21 mmol/L (23-31); Chloride 112 mmol/L (98-107); Estimated GFR 86; Globulin 3.3 g/dL (2.4-3.5); Glucose 152 mg/dL (83-110); Magnesium 1.8 mg/dL (1.6-2.6); Potassium 3.8 mmol/L (3.5-5.1); Protein, Total 6.5 g/dL (5.8-8.1); Sodium 141 mmol/L (136-145)
[2024-06-19 07:31] LABS: INR-International Normal Ratio 1.1; PTT 29.3 sec (22.9-36.1); Prothrombin Time 13.8 sec (12.0-14.7)
[2024-06-19 07:33] LABS: Troponin I Less than 0.010 ng/mL (< 0.028)
[2024-06-19] MEDS ORDERED: Aspirin 300 MG Suppository ONE (07:47)
[2024-06-19] MEDS ORDERED: Dextrose 50% Abboject 50 ML SYRINGE SLOW IVP PRN (09:14)
[2024-06-19] MEDS ORDERED: Glucagon 1 MG/ML KIT IM PRN (09:14)
[2024-06-19] MEDS ORDERED: Acetaminophen 650 MG Suppository PR PRN (09:14)
[2024-06-19] MEDS ORDERED: hydrALAZINE 20 MG/ML VIAL SLOW IVP PRN (09:14)
[2024-06-19] MEDS ORDERED: Dextrose 5% in Water 1,000 ML IV PRN (09:14)
[2024-06-19] MEDS ORDERED: Sodium Chloride 0.9% 1,000 ML IV SCH (12:15)
[2024-06-19] MEDS: Sodium Chloride 0.9% 1,000 ML IV SCH (18:48)
[2024-06-19] MEDS: Famotidine/PF 20 mg/2ml Vial SLOW IVP SCH (21:02)
[2024-06-19] MEDS: Atorvastatin Calcium 40 MG TAB PO SCH (21:02)
[2024-06-20 04:39] LABS: Cardiac Risk 3.1 (Less than 4.5)
[2024-06-20] MEDS ORDERED: Electrolyte Replacement Protocol 1 EACH FS PRN (06:39)
[2024-06-20 06:40] VITALS: BMI 23.1
[2024-06-20] MEDS ORDERED: Magnesium 2 GM/50 ML(in water) 2 GM in Premix 1 BAG IVPB SCH (07:15)
[2024-06-20] MEDS: Aspirin 300 MG Suppository PR SCH (09:29)
[2024-06-20] MEDS: Enoxaparin 40 MG (0.4 mL) SYRINGE SC SCH (09:29)
[2024-06-20 10:31] LABS: Carbon Dioxide 17 mmol/L (23-31); Chloride 113 mmol/L (98-107); Potassium 3.4 mmol/L (3.5-5.1); Sodium 141 mmol/L (136-145)
[2024-06-20 10:32] LABS: Calcium 8.4 mg/dL (7.6-10.4); Glucose 73 mg/dL (83-110)
[2024-06-20 10:33] LABS: BUN (Urea Nitrogen) 11 mg/dL (9.8-20.1); Calc. Creatinine Clearance 68 mL/min (70-130); Estimated GFR 87
[2024-06-20 10:35] LABS: Anion Gap 14 mmol/L (10-20)
[2024-06-20 10:41] LABS: Phosphorus 3.1 mg/dL (2.3-4.7)
[2024-06-20] MEDS: Potassium Chloride 20 MEQ in Premix 1 BAG IVPB SCH (13:52)
[2024-06-20] MEDS: POTASSIUM CHLORIDE IV SCH (22:40)
[2024-06-20] MEDS: DEXTROSE 50% IV SCH (22:40)
[2024-06-20] MEDS: LACTATED RINGER S IV SCH (22:40)
[2024-06-21 04:29] LABS: #Basophils 0.04 10x3/uL (0.0-0.2); %Basophils 0.7 % (0.0-1.0); %Eosinophils 2.7 % (0.0-10.0); %Lymphocytes 27.4 % (21.0-51.0); %Monocytes 9.5 % (0.0-10.0); %Neutrophils 59.2 % (42.0-75.0); Hematocrit 38.1 % (36.0-47.0); Hemoglobin 12.5 g/dL (12.0-16.0); Mean Corpuscular HGB CONC 32.8 g/dL (32.0-36.0); Mean Corpuscular Hemoglobin 28.9 pg (27.0-31.0); Mean Corpuscular Volume 88.2 fL (78.0-98.0); Mean Platelet Volume 11.3 fL (7.4-10.4); Platelet Count 233 10x3/uL (130-400); RBC Distribution Width 14.8 % (11.5-14.5); Red Blood Cell (RBC) Count 4.32 mill/uL (4.20-5.40)
[2024-06-21 04:45] LABS: Anion Gap 11 mmol/L (10-20); BUN (Urea Nitrogen) 8 mg/dL (9.8-20.1); Calc. Creatinine Clearance 68 mL/min (70-130); Calcium 8.5 mg/dL (7.8-10.44); Carbon Dioxide 21 mmol/L (23-31); Chloride 111 mmol/L (98-107); Estimated GFR 87; Glucose 144 mg/dL (83-110); Magnesium 1.5 mg/dL (1.6-2.6); Potassium 3.8 mmol/L (3.5-5.1); Sodium 139 mmol/L (136-145)
[2024-06-21] MEDS: Magnesium 2 GM/50 ML(in water) 2 GM in Premix 1 BAG IVPB SCH (06:34)
[2024-06-21] MEDS: DEXTROSE 50% IV SCH (06:35)
[2024-06-21] MEDS: LACTATED RINGER S IV SCH (06:35)
[2024-06-21] MEDS: POTASSIUM CHLORIDE IV SCH (06:35)
[2024-06-21] MEDS ORDERED: Electrolyte Replacement Protocol 1 EACH FS SCH (07:45)
[2024-06-21] MEDS ORDERED: Carvedilol 3.125 MG TAB PO SCH (09:00)
[2024-06-21] MEDS ORDERED: ENALAPRIL MALEATE 5 MG PO SCH (09:00)
[2024-06-21] MEDS ORDERED: Cholecalciferol 1,000 UNITS (25 MCG) TAB PO SCH (09:00)
[2024-06-21] MEDS: Lisinopril 5 MG TAB PO SCH (09:15)
[2024-06-21] MEDS: Carvedilol 6.25 MG TAB PO SCH (09:16)
[2024-06-21] MEDS: Clopidogrel Bisulfate 75 MG TAB PO SCH (09:16)
[2024-06-21] MEDS: Cholecalciferol 1,000 UNITS (25 MCG) TAB PO SCH (09:17)
[2024-06-22 04:07] LABS: #Basophils 0.04 10x3/uL (0.0-0.2); %Basophils 0.7 % (0.0-1.0); %Eosinophils 3.3 % (0.0-10.0); %Lymphocytes 34.2 % (21.0-51.0); %Neutrophils 51.6 % (42.0-75.0); Hematocrit 40.3 % (36.0-47.0); Hemoglobin 13.1 g/dL (12.0-16.0); Mean Corpuscular HGB CONC 32.5 g/dL (32.0-36.0); Mean Corpuscular Hemoglobin 28.6 pg (27.0-31.0); Platelet Count 225 10x3/uL (130-400); RBC Distribution Width 14.9 % (11.5-14.5); Red Blood Cell (RBC) Count 4.58 mill/uL (4.20-5.40)
[2024-06-22 06:43] LABS: Anion Gap 13 mmol/L (10-20); BUN (Urea Nitrogen) 9 mg/dL (9.8-20.1); Calc. Creatinine Clearance 66 mL/min (70-130); Calcium 8.6 mg/dL (7.8-10.44); Carbon Dioxide 22 mmol/L (23-31); Chloride 109 mmol/L (98-107); Estimated GFR 86; Glucose 115 mg/dL (83-110); Magnesium 1.9 mg/dL (1.6-2.6); Potassium 3.5 mmol/L (3.5-5.1); Sodium 140 mmol/L (136-145)
[2024-06-22] MEDS: Magnesium 2 GM/50 ML(in water) 2 GM in Premix 1 BAG IVPB SCH (09:24)
[2024-06-22] MEDS: Potassium Bicarbonate/Cit Ac 20 MEQ TAB PO SCH (09:25)
[2024-06-22] MEDS: Insulin Regular, Human 100 UNIT/ML 10 ML VIAL SC PRN (21:12)
[2024-06-23 12:41] VITALS: TEMP 97.9
[2024-06-23 12:54] VITALS: BP 131/72
[2024-06-24] MEDS ORDERED: Aspirin 81 mg Enteric Coated Tablet PO SCH (09:00)
== END 2024-06-23 15:55 | DRG 65 ==
LOC: ERS 05:43 → 2SE 09:35 → OBSVTOIN 06-20 11:24
PROVIDERS: ADMIT Internal Medicine; ATTEND Family Medicine
DX: I63.312 Cerebral infarction due to thrombosis of left middle cerebral artery (principal); G81.94 Hemiplegia, unspecified affecting left nondominant side; E11.9 Type 2 diabetes mellitus without complications; R29.702 NIHSS score 2; E78.5 Hyperlipidemia, unspecified; I10 Essential (primary) hypertension; R47.01 Aphasia; R13.10 Dysphagia, unspecified
CPT/HCPCS: 0042T; 36415; 36416; 70450; 70496; 70498; 70551; 74230; 80048; 80053; 80061; 83036; 83735; 84100; 84443; 84484; 85025; 85610; 85730; 93005; 93306; 96372; 96374; 96376; G0378; J1650; J1815; J3475; J3480; J3490; J7030; J7120